=== PATIENT | male | born 1945 | race Caucasian/White ===

== ENCOUNTER 2016-07-24 16:55 | Observation (INO) | payer OTHER ==
[2016-07-24] MEDS ORDERED: NS 1,000 ML IV ONE (17:08)
--- NOTE | 2016-07-24 17:08 | UCPHY ---
H & P Patient Type: New HPI/ROS: HPI CHIEF COMPLAINT: Abdominal pain HISTORY OF PRESENT ILLNESS: this patient is 71-year-old male significant past medical history for hypertension, hyperlipidemia, diverticulitis with colon resection, presents to the urgent care with lower crampy abdominal pain x1 week. He has had intermittent nausea with it no chest pain no shortness of breath no fever. Denies diarrhea. Denies bloody stools. States that anything he feels constipated he has had ongoing lower abdominal pain that he describes as crampy and bloating in nature. This persisted for the week try to make appointment his doctor however could not get in so decided come to the urgent care. currently he tells me his pain is 3/10 lower abdominal cramping. Past Medical History: Hypertension, hyperlipidemia Past Surgical History: colon resection Social History: denies daily use of drugs alcohol tobacco products Family History: noncontributory ROS REVIEW OF SYSTEMS: A comprehensive 10 point review of systems is otherwise negative aside from elements mentioned in the history of present illness. Exam Constitutional appears well triage nursing summary reviewed, vital signs reviewed, awake/alert. Eyes normal conjunctivae and sclera, EOMI, PERRLA. HENT normal inspection, atraumatic, moist mucus membranes, no epistaxis, neck supple/ no meningismus, no raccoon eyes. Respiratory clear to auscultation bilaterally, normal breath sounds, no respiratory distress, no wheezing. Cardiovascular rate normal, regular rhythm, no murmur, no edema, distal pulses normal. Gastrointestinal soft, Very minimal tenderness in lower abdomen definitely no peritoneal signs, no rebound, no guarding, normal bowel sounds, no distension , no pulsatile mass. Genitourinary no CVA tenderness. Musculoskeletal no midline vertebral tenderness, full range of motion, no calf swelling, no tenderness of extremities, no meningismus, good pulses, neurovascularly intact. Skin pink, warm, & dry, no rash, skin atraumatic. Neurologic awake, alert and oriented x 3, AAOx3, moves all 4 extremities equally, motor intact, sensory intact, CN II-XII intact, normal cerebellar, normal vision, normal speech. Psychiatric normal mood/affect. Heme/Lymph/Immune no lymphadenopathy. Differential diagnosis includes but is not limited to and in no particular order : Bowel obstruction, appendicitis, gallbladder disease, diverticulitis, colitis , enteritis, perforated viscus, gastritis, GERD, esophagitis, urinary tract infection, pyelonephritis, kidney stones Medical Decision Making:This patient had an IV established obtain blood work, patient will need a CT scan abdomen pelvis with IV contrast to rule out acute diverticulitis, colitis, appendicitis check urinalysis Re-evaluation: CT scan of the Abdomen pelvis with IV contrast The results of the study are this shows acute diverticulitis of the colonic stump with significant stranding and area of air pocket most likely either micro perforation or diverticular air no evidence of free air or significant free fluid. The study was read by Dr. Becker. I viewed the images myself on the PACS system. 1856: This patient is comfortable being transported over to [facility] inpatient for acute diverticulitis with perforation. I spoke with the hospitalist service Dr. Arredondo who agrees to admit this patient. Source: Patient - Family History Significant Family History: No pertinent family hx Constitutional: Initial Vital Signs Temperature (C) 36.9 C 07/24/16 17:22 Heart Rate 82 07/24/16 17:22 Respiratory Rate 16 07/24/16 17:22 Blood Pressure 155/92 H 07/24/16 17:22 O2 Sat (%) 96 07/24/16 17:22 O2 Delivery Mode Room Air Allergies/Adverse Reactions: Penicillins Allergy (Intermediate, Verified 07/24/16 17:20) Home Medications: Medication Instructions Recorded ALLOPURINOL 08/27/09 Atorvastatin Calcium 07/24/16 Cq10 07/24/16 Flax Seed Oil 1,300 mg Softgel 07/24/16 Multi-Day Vitamins 07/24/16 Valsartan 07/24/16 Medical Decision Making - Data Points Laboratory Results: Laboratory Results 07/24/16 17:45 07/24/16 17:45 07/24/16 07/24/16 07/24/16 18:44 17:45 17:45 WBC RBC Hgb Hct MCV MCH MCHC RDW Plt Count MPV Neut % (Auto) Lymph % (Auto) Leake % (Auto) Eos % (Auto) Baso % (Auto) Nucleat RBC Rel Count Absolute Neuts (auto) Absolute Lymphs (auto) Absolute Monos (auto) Absolute Eos (auto) Absolute Basos (auto) Absolute Nucleated RBC Immature Gran % Immature Gran # PT 14.2 SEC SEC (12.0-15.0) INR 1.13 (0.83-1.16) APTT 30.9 SEC SEC (23.0-38.0) VBG Lactic Acid Sodium 139 mEq/L mEq/L (134-144) Potassium 3.8 mEq/L mEq/L (3.5-5.2) Chloride 103 mEq/L mEq/L (97-110) Carbon Dioxide 21 mEq/l L mEq/l (22-31) Anion Gap 15 mEq/L mEq/L (8-16) BUN 26 mg/dL H mg/dL (7-23) Creatinine 1.2 mg/dL mg/dL (0.7-1.3) Estimated GFR > 60 Glucose 94 mg/dL mg/dL (70-100) Calcium 8.8 mg/dL mg/dL (8.5-10.4) Total Bilirubin 0.2 mg/dL mg/dL (0.1-1.4) Conjugated Bilirubin 0.2 mg/dL mg/dL (0.0-0.5) Unconjugated Bilirubin 0.0 mg/dL mg/dL (0.0-1.1) AST 29 IU/L IU/L (17-59) ALT 40 IU/L IU/L (21-72) Alkaline Phosphatase 76 IU/L IU/L (38-126) Total Protein 6.6 g/dL g/dL (6.3-8.2) Albumin 3.7 g/dL g/dL (3.5-5.0) Lipase 80.0 IU/L IU/L (23-300) Urine Color Pending Urine Appearance Pending Urine pH Pending Ur Specific [place] Pending Urine Protein Pending Urine Ketones Pending Urine Blood Pending Urine Nitrate Pending Urine Bilirubin Pending Urine Urobilinogen Pending Ur Leukocyte Esterase Pending Ur Culture Indicated? Pending Urine Glucose Pending 07/24/16 07/24/16 17:45 17:45 WBC 7.05 10^3/uL 10^3/uL (3.80-9.50) RBC 4.36 10^6/uL L 10^6/uL (4.40-6.38) Hgb 12.8 g/dL L g/dL (13.7-17.5) Hct 37.0 % L % (40.0-51.0) MCV 84.9 fL fL (81.5-99.8) MCH 29.4 pg pg (27.9-34.1) MCHC 34.6 g/dL g/dL (32.4-36.7) RDW 13.1 % % (11.5-15.2) Plt Count 249 10^3/uL 10^3/uL (150-400) MPV 8.5 fL L fL (8.7-11.7) Neut % (Auto) Not Reported Lymph % (Auto) Not Reported Leake % (Auto) Not Reported Eos % (Auto) Not Reported Baso % (Auto) Not Reported Nucleat RBC Rel Count 0.0 % % (0.0-0.2) Absolute Neuts (auto) Not Reported Absolute Lymphs (auto) Not Reported Absolute Monos (auto) Not Reported Absolute Eos (auto) Not Reported Absolute Basos (auto) Not Reported Absolute Nucleated RBC 0.00 10^3/uL 10^3/uL (0-0.01) Immature Gran % Not Reported Immature Gran # Not Reported PT INR APTT VBG Lactic Acid 0.6 mmol/L L mmol/L (0.7-2.1) Sodium Potassium Chloride Carbon Dioxide Anion Gap BUN Creatinine Estimated GFR Glucose Calcium Total Bilirubin Conjugated Bilirubin Unconjugated Bilirubin AST ALT Alkaline Phosphatase Total Protein Albumin Lipase Urine Color Urine Appearance Urine pH Ur Specific [place] Urine Protein Urine Ketones Urine Blood Urine Nitrate Urine Bilirubin Urine Urobilinogen Ur Leukocyte Esterase Ur Culture Indicated? Urine Glucose Medications Given: Discontinued Medications Sodium Chloride (Ns) 1,000 mls @ 0 mls/hr IV ONCE ONE PRN Reason: Wide Open Stop: 07/24/16 17:09 Last Admin: 07/24/16 18:00 Dose: 1,000 mls Departure - Departure Disposition: [facility] Inpatient Acute Clinical Impression: Abdominal pain Qualifiers: Abdominal location: unspecified location Qualified Code(s): R10.9 - Unspecified abdominal pain Diverticulitis Qualifiers: Diverticulitis site: large intestine Diverticulitis bleeding: without bleeding Diverticulitis complication: with perforation Qualified Code(s): K57.20 - Diverticulitis of large intestine with perforation and abscess without bleeding Condition: Good Instructions: Acute Abdominal Pain (ED) Additional Instructions: 1.Please follow up with your doctor. 2. return to the emergency room urgent care if you have any worsening symptoms questions or concerns. Referrals: Domingo Parry MD [Primary Care Provider] - As per Instructions - PQRS PQRS Measurement: n/a
[2016-07-24 17:53] LABS: ADD MORPH? NO; ADD SCAN? YES; FRAGMENT RBC FLAG 0 (0-99); HEMOGLOBIN 12.8 g/dL (13.7-17.5); LEFT SHIFT FLG 0 (0-99); LIPEMIA HEMOLYSIS FLAG 90 (0-99); PLATELET CLUMPS FLAG 0 (0-99); RED CELL DISTRIBUTION WIDTH 13.1 % (11.5-15.2)
[2016-07-24 17:56] LABS: MEAN CELL HEMOGLOBIN 29.4 pg (27.9-34.1); MEAN CELL HEMOGLOBIN CONCENTR. 34.6 g/dL (32.4-36.7); MEAN CELL VOLUME 84.9 fL (81.5-99.8); MEAN PLATELET VOLUME 8.5 fL (8.7-11.7); PLATELET COUNT 249 10^3/uL (150-400); RED BLOOD CELL COUNT 4.36 10^6/uL (4.40-6.38)
[2016-07-24 18:03] LABS: ATYPICAL LYMPHOCYTE FLAG 160 (0-99)
[2016-07-24 18:05] LABS: ADD DIFF? NO
[2016-07-24 18:08] LABS: APTT 30.9 SEC (23.0-38.0)
[2016-07-24 18:10] LABS: ALANINE AMINOTRANSFERASE 40 IU/L (21-72); ALBUMIN 3.7 g/dL (3.5-5.0); ALKALINE PHOSPHATASE 76 IU/L (38-126); ANION GAP 15 mEq/L (8-16); ASPARTATE AMINOTRANSFERASE 29 IU/L (17-59); BILIRUBIN,TOTAL 0.2 mg/dL (0.1-1.4); BILIRUBIN-CONJUGATED 0.2 mg/dL (0.0-0.5); CALCIUM 8.8 mg/dL (8.5-10.4); CARBON DIOXIDE 21 mEq/l (22-31); CHLORIDE 103 mEq/L (97-110); CREATININE 1.2 mg/dL (0.7-1.3); GLOMERULAR FILTRATION RATE > 60; GLUCOSE 94 mg/dL (70-100); POTASSIUM 3.8 mEq/L (3.5-5.2); SODIUM 139 mEq/L (134-144); TOTAL PROTEIN 6.6 g/dL (6.3-8.2)
[2016-07-24 18:12] LABS: INR 1.13 (0.83-1.16); PROTIME(PATIENT) 14.2 SEC (12.0-15.0)
[2016-07-24] MEDS ORDERED: IOPAMIDOL (ISOVUE-300) 100 ML BTL IV ONE (18:21)
[2016-07-24] MEDS ORDERED: CIPROFLOXACIN 400 MG/DEXTROSE 200 ML IV ONE (18:51)
[2016-07-24 18:58] LABS: COLOR YELLOW; LEUKOCYTE ESTERASE,URINE NEGATIVE (NEGATIVE); NITRITE,URINE NEGATIVE (NEGATIVE)
[2016-07-24 18:59] LABS: ABSOLUTE IMMATURE GRANULOCYTES 0.07 10^3/uL (0.00-0.10)
[2016-07-24 19:01] LABS: SCAN NEGATIVE
[2016-07-24 19:16] LABS: BACTERIA 2+ /hpf (NONE SEEN); RBC,URINE 0-1 /hpf (0-3); WBC,URINE NONE SEEN /hpf (0-3)
[2016-07-24] MEDS ORDERED: oxyCODONE IR 5 MG TAB PO PRN (22:51)
[2016-07-24] MEDS ORDERED: ACETAMINOPHEN 325 MG TAB PO PRN (22:51)
[2016-07-24] MEDS ORDERED: ONDANSETRON 4 MG/2 ML VIAL IVP PRN (22:51)
[2016-07-24] MEDS ORDERED: HYDROmorphONE/DILAUDID 1 MG/ML SYR IVP PRN (22:51)
[2016-07-24] MEDS ORDERED: NS 1,000 ML IV SCH (23:00)
--- NOTE | 2016-07-24 23:21 | GHP ---
[f rep st] HISTORY AND PHYSICAL DATE OF ADMISSION: 07/24/2016 HISTORY: The patient is a 71-year-old male who has a history of severe diverticulitis in 2001 requi ring surgical resection by Dr. Hsu. He removed 10 cm of colon. He has not had any recurrent epis odes since that time. He now re-presents to the hospital with lower abdominal pain for the last wee k. Initially thought he might have the stomach flu. Then he thought he might be constipated and he felt bloated. Initially the pain was diffuse but it eventually has localized to a spot midline rig ht above his pelvic bone. He has had normal stool throughout this. There has never been any blood in his stool. His has noticed him to have daily low-grade fevers. At its worst, the pain is 8 /10. He is currently doing much better. He has had decreased p.o. intake and complete loss of appe tite and he has lost 5 pounds. He is up to date on colonoscopy with his last 1 being 1 year ago. PAST MEDICAL HISTORY: 1. Hypertension. 2. Hyperlipidemia. 3. Diverticulitis with colon resection by Dr. Hsu in 2001. 4. Obstructive sleep apnea, on CPAP. 5. Actinic keratosis. 6. Spinal stenosis. MEDICATIONS: Please see computer record for full detailed list. ALLERGIES: To penicillin. SOCIAL HISTORY: Distant smoker. He drinks alcohol a few times a week. He lives with his . 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 REVIEW OF SYSTEMS: Complete review of systems obtained. Review of systems is negative regarding co nstitutional, HEENT, GI, pulmonary, cardiovascular, , hematology, skin, musculoskeletal, endocrine and psychiatric, except for positives as noted in HPI. FAMILY HISTORY: Mother of a stroke and AL. Father of colon cancer and dementia. PHYSICAL EXAMINATION: GENERAL: Well-developed, well-nourished male, in no acute distress. VITAL S IGNS: Temperature is 36.9, pulse 82, blood pressure 155/92, saturating 96% on room air. EYES: Nor mal conjunctivae. Pupils react to light. ENT: Normal ears, nose. Hearing intact. Normal teeth. Oropharynx moist. NECK: Trachea midline. No thyromegaly. CHEST: Normal respiratory effort. Leonela ngs are clear to auscultation bilaterally. CARDIOVASCULAR: Regular rate and rhythm. No murmur. N o lower extremity edema. ABDOMEN: Soft, nontender. No hepatosplenomegaly. SKIN: Warm, dry, inta ct. No rash. MUSCULOSKELETAL: No cyanosis or clubbing. Strength 5/5 upper and lower extremities. NEUROLOGIC: Cranial nerves intact. Normal sensation to light touch. PSYCH: Alert and oriented x3. Normal mood and affect. Normal insight and judgment. Normal memory. LABS: White count 7.05, hematocrit 37.0, platelets 249. Sodium 139, potassium 3.8, chloride 103, b icarb 21, BUN 26, creatinine 1.2, glucose 94. LFTs are negative. INR is 1.13. Lactate 0.6. CT sc an of the abdomen and pelvis shows diverticulitis of the stump of his previous sigmoid anastomosis w ith a contained microperforation. ASSESSMENT/PLAN: 1. Acute diverticulitis with a contained microperforation. He was started on IV antibiotics includ ing IV ciprofloxacin, IV Flagyl, which I will continue. We will start him on clear liquids. We can advance his diet and change him to oral antibiotics as his condition improves. I think he will do well with medical therapy and I doubt he will need surgery. 2. Obstructive sleep apnea. Continue CPAP at night. 3. Hypertension. Home medications still need reconciliation and blood pressure medications can be continued. CODE STATUS: Full. ADMISSION STATUS: We will admit to observation. Depending on his clinical course, he may develop r apid improvement. DEEP VENOUS THROMBOSIS PROPHYLAXIS: He is moderate risk. I will prescribe subcutaneous Lovenox. /[id number]/MODL
[2016-07-25 05:55] LABS: % IMMATURE GRANULYOCYTES 1.4 % (0.0-1.1); ABSOLUTE IMMATURE GRANULOCYTES 0.07 10^3/uL (0.00-0.10); ADD DIFF? NO; ADD MORPH? NO; ADD SCAN? YES; ATYPICAL LYMPHOCYTE FLAG 160 (0-99); FRAGMENT RBC FLAG 0 (0-99); HEMATOCRIT 36.8 % (40.0-51.0); HEMOGLOBIN 12.7 g/dL (13.7-17.5); LEFT SHIFT FLG 10 (0-99); LIPEMIA HEMOLYSIS FLAG 90 (0-99); MEAN CELL HEMOGLOBIN 29.1 pg (27.9-34.1); MEAN CELL HEMOGLOBIN CONCENTR. 34.5 g/dL (32.4-36.7); MEAN CELL VOLUME 84.4 fL (81.5-99.8); MEAN PLATELET VOLUME 8.9 fL (8.7-11.7); PLATELET CLUMPS FLAG 0 (0-99); PLATELET COUNT 246 10^3/uL (150-400); RED BLOOD CELL COUNT 4.36 10^6/uL (4.40-6.38)
[2016-07-25 06:43] LABS: ANION GAP 11 mEq/L (8-16); CALCIUM 8.9 mg/dL (8.5-10.4); CARBON DIOXIDE 20 mEq/l (22-31); CHLORIDE 109 mEq/L (97-110); GLOMERULAR FILTRATION RATE > 60; GLUCOSE 97 mg/dL (70-100); POTASSIUM 4.2 mEq/L (3.5-5.2); SODIUM 140 mEq/L (134-144)
[2016-07-25 06:45] LABS: SCAN POSITIVE
[2016-07-25 06:49] LABS: PLATELET ESTIMATE ADEQUATE (ADEQ)
[2016-07-25 08:09] VITALS: PULSE 55; RESP 16
[2016-07-25] MEDS ORDERED: ENOXAPARIN 40 MG/0.4 ML SYR SC SCH (09:00)
[2016-07-25] MEDS ORDERED: CIPROFLOXACIN 400 MG/DEXTROSE 200 ML IV SCH (09:00)
--- NOTE | 2016-07-25 09:10 | HOSPPROG ---
Hospitalist Progress Note Assessment/Plan: patient is a 71-year-old male who presented to the emergency room with lower abdominal pain that he had last week. Initially he thought he had the stomach flu. The pain was diffuse. He has a history of severe diverticulitis in 2001 requiring surgical resection by Dr. Hsu. Today is my 1st encounter with the patient. Chart reviewed. * Acute diverticulitis with a contained micro perforation - ciprofloxacin and IV Flagyl. - On clear liquids -abdominal exam is negative -wbc count stable * obstructive sleep apnea * hypertension -resumed home meds *headache -has hx of chronic headaches/takes Excedrin daily for this Plan: dc today/ reviewed in detail with the patient about when to return to the emergency room. If he has any fever, chills, or any abdominal pain to return immediately. Subjective: Maurice is complaining of a headache. Has no abdominal pain. Objective: Vital Signs Temp Pulse Resp BP Pulse Ox 36.8 C 55 L 16 151/85 H 95 07/25/16 08:00 07/25/16 08:00 07/25/16 08:00 07/25/16 08:00 07/25/16 08:00 Laboratory Results 07/25/16 05:25 07/25/16 05:25 07/24/16 07/25/16 07/26/16 05:59 05:59 05:59 Intake Total 720 Output Total 700 Balance 20 PT 14.2 SEC (12.0-15.0) 07/24/16 17:45 INR 1.13 (0.83-1.16) 07/24/16 17:45 - Physical Exam Constitutional: no apparent distress, appears nourished, No not in pain ( headache) Ears, Nose, Mouth, Throat: hearing normal Cardiovascular: regular rate and rhythym Respiratory: no respiratory distress Gastrointestinal: normoactive bowel sounds, soft, non-tender abdomen, No tenderness Skin: warm, normal color Musculoskeletal: full muscle strength Neurologic: AAOx3 Psychiatric: interacting appropriately, not anxious ICD10 Worksheet Patient Problems: Problems Problem Status Onset Abdominal pain Acute Diverticulitis Acute
[2016-07-25] MEDS ORDERED: ACETAMINOPHEN 500 MG TAB PO PRN (10:44)
[2016-07-25] MEDS ORDERED: ACETAMINOPHEN/ASA/CAFFEINE 1 EACH TAB PO PRN (11:36)
[2016-07-25 11:44] VITALS: BP 151/87; TEMP 97.7; O2SAT 98
[2016-07-25] MEDS ORDERED: HYDROCHLOROTHIAZIDE PO SCH (11:45)
[2016-07-25] MEDS ORDERED: [UNRECOGNIZED DRUG - OTHER] PO SCH (11:45)
[2016-07-25] MEDS ORDERED: VALSARTAN PO SCH (11:45)
--- NOTE | 2016-07-25 12:11 | GDS ---
[f rep st] DISCHARGE SUMMARY DISCHARGE DIAGNOSES: 1. Acute diverticulitis with a contained microperforation. 2. Obstructive sleep apnea. 3. Hypertension. 4. Headache. HISTORY OF PRESENT ILLNESS: The patient is a 71-year-old male who has a history of severe diverticulitis in 2001, requiring surgical resection by Dr. Hsu. At that time, he had 10 cm of his colon removed. He has had no recurrent episodes. He now presented to the emergency room for having a consistent left lower quadrant abdominal pain for the last week. He thought it was the stomach flu or constipation. His noted that he had low-grade fevers. On his admission, he said his pain was markedly improved. He had a CT scan performed on admission that showed diverticulitis of the stump at the side-to-end sigmoid anastomosis. He had regional inflammation in the central pelvis. He had a contained microperforation versus gas-filled diverticulum at the apex of the stump. He had no pneumoperitoneum, free fluid or abscess. He had normal appendix. His pain has completely resolved. He is feeling well today. He will be discharged home on Cipro and Flagyl, to give him complete coverage. I have also discussed in detail with him if he has any fever, chills, worsening abdominal pain, to return to the emergency room immediately. HOSPITAL COURSE PER PROBLEM: 1. Acute diverticulitis with microperforation. This is contained. He is tolerating clear liquids. Recommending he stay on clear liquids for next 24 hours. His abdominal exam is completely negative. His white blood cell count is stable. Will continue antibiotics. To follow up with Dr. Hsu. 2. Obstructive sleep apnea. To resume his CPAP at home. 3. Hypertension. Home medications will be resumed. 4. Headache. He has a history of chronic headaches and takes Excedrin daily. This will be resumed. PENDING LABS AND TESTS: None. CONDITION AT DISCHARGE: Stable. Blood pressure is 151/85, pulse is 55, temperature is 36.8 Celsius. O2 saturation in room air 95%. MEDICATIONS AT DISCHARGE: Please see the EMR. DISCHARGE INSTRUCTIONS: 1. To return to the ER if he develops any fever, abdominal pain, chills. 2. To follow up with his primary care provider. 3. If he develops any diarrhea to follow up with his doctor immediately. He does have a history of Clostridium difficile many years ago. 4. Take Flagyl and Cipro as prescribed. To avoid alcohol while on Flagyl. /[id number]/MODL MTDD
[2016-07-26] MEDS ORDERED: HYDROCHLOROTHIAZIDE 12.5 MG CAP PO SCH (09:00)
[2016-07-26] MEDS ORDERED: VALSARTAN 160 MG TAB PO SCH (09:00)
== END 2016-07-25 14:48 | disposition home or self-care (01) ==
LOC: CED 16:55 → CEDHOLD 18:54 → INTOOBSV 18:54 → F3E 21:35
PROVIDERS: ADMIT Internal Medicine; ATTEND Internal Medicine
DX: K57.20 Diverticulitis of large intestine with perforation and abscess without bleeding (principal); I10 Essential (primary) hypertension; E78.5 Hyperlipidemia, unspecified; G47.33 Obstructive sleep apnea (adult) (pediatric); R51 Headache
CPT/HCPCS: 74177; 96361; 96365; 96367; G0378; G0463; J0744; J1650; Q9967; 80048-PO; 80076-PO; 81003-PO; 81015-PO; 83605-PO; 83690-PO; 85025-PO; 85610-PO; 85730-PO

== ENCOUNTER 2016-08-21 07:45 | Inpatient (IN) | payer OTHER ==
[2016-08-21] MEDS ORDERED: LR 1,000 ML IV ONE (08:28)
[2016-08-21] MEDS ORDERED: LIDOCAINE 1% 5 ML SDV ID PRN (08:28)
[2016-08-21] MEDS ORDERED: HEPARIN 1000 UNIT/1 ML MDV ONE ×2 (08:34→08:36)
[2016-08-21] MEDS ORDERED: BUPIVACAINE 0.5% 30 ML SDV ONE (08:34)
[2016-08-21] MEDS ORDERED: ceFAZolin 1 GM/5 ML SYR ONE (08:35)
[2016-08-21] MEDS ORDERED: PROPOFOL 200 MG/20 ML VIAL ONE (10:02)
[2016-08-21] MEDS ORDERED: fentaNYL 250 MCG/5 ML INJ ONE (10:03)
[2016-08-21] MEDS ORDERED: MIDAZOLAM 2 MG/2 ML VIAL ONE (10:03)
[2016-08-21] MEDS ORDERED: POLYETHYLENE GLYCOL 3350 17 GM PKT PO PRN (13:19)
[2016-08-21] MEDS ORDERED: NALOXONE HCL 0.4 MG/ML INJ IVP PRN (13:19)
[2016-08-21] MEDS ORDERED: MAGNESIUM HYDROXIDE 30 ML UDCUP PO PRN (13:19)
[2016-08-21] MEDS ORDERED: HYDROmorphONE/DILAUDID 6 MG/30 ML PCA IV PRN (13:19)
--- NOTE | 2016-08-21 13:28 | POSTOPPROG ---
Post Op Note Date of Operation: 08/21/16 Surgeon: Antwan Hsu Computer Instructor: Gaby Loving PAC, Lin Martinez MS, GADIEL Zacarias MS Anesthesiologist: Kandis Mares Anesthesia: GET(General Endotracheal) Pre-op Diagnosis: recurrent diverticulitis Post-op Diagnosis: same Procedure: lap sigmoid diverticulum resection, adhesiolysis, intraop colonoscopy Findings: large diverticulum, patent colon proven by colonoscopy during resection Inf/Abcess present in the surg proc area at time of surgery?: No EBL: Minimal Complications: none Specimen(s): sigmoid diverticulum to pathology
[2016-08-21] MEDS: HYDROCODONE/APAP 5/325 TAB PO PRN (16:52)
[2016-08-21] MEDS: KETOROLAC 15 MG/1 ML SDV IVP SCH (17:00)
[2016-08-21] MEDS: ATORVASTATIN CALCIUM 20 MG TAB PO SCH (20:31)
[2016-08-21] MEDS: ALLOPURINOL 100 MG TAB PO SCH (20:31)
[2016-08-21] MEDS: SENNOSIDES/DOCUSATE SODIUM TAB PO SCH (20:31)
[2016-08-22] MEDS: KETOROLAC 15 MG/1 ML SDV IVP SCH ×5 (00:31→23:18)
[2016-08-22] MEDS: NS W/ 20 KCl/L 1,000 ML IV SCH ×2 (00:31→06:14)
[2016-08-22 04:56] LABS: HEMATOCRIT 37.7 % (40.0-51.0); HEMOGLOBIN 12.5 g/dL (13.7-17.5)
[2016-08-22 05:23] LABS: ANION GAP 11 mEq/L (8-16); CALCIUM 8.3 mg/dL (8.5-10.4); CARBON DIOXIDE 20 mEq/l (22-31); CHLORIDE 107 mEq/L (97-110); CREATININE 1.1 mg/dL (0.7-1.3); GLOMERULAR FILTRATION RATE > 60; GLUCOSE 91 mg/dL (70-100); POTASSIUM 4.4 mEq/L (3.5-5.2); SODIUM 138 mEq/L (134-144)
[2016-08-22] MEDS: VALSARTAN 160 MG TAB PO SCH (08:26)
[2016-08-22] MEDS: HYDROCHLOROTHIAZIDE 12.5 MG CAP PO SCH (08:26)
[2016-08-22] MEDS: SENNOSIDES/DOCUSATE SODIUM TAB PO SCH ×2 (08:26→22:19)
[2016-08-22] MEDS: PANTOPRAZOLE SODIUM 40 MG TAB PO SCH (08:27)
[2016-08-22] MEDS ORDERED: [UNRECOGNIZED DRUG - OTHER] PO SCH (09:00)
[2016-08-22] MEDS ORDERED: VALSARTAN PO SCH (09:00)
[2016-08-22] MEDS ORDERED: HYDROCHLOROTHIAZIDE PO SCH (09:00)
--- NOTE | 2016-08-22 10:41 | SOAPPROG ---
SOAP Progress Note Assessment/Plan: Assessment/Plan: 71 Y M s/p resection of large sigmoid diverticulum. POD#1. Advance diet. Buff cap IVF. Ok to take SCDs off if walking. Dispo: likely in am. S: passing gas. no n/v. pain minimal--just using toradol. O: alert, nad ctab anteriorly rrr abd soft, inc cdi, +BS, appropriately ttp 08/22/16 10:38 Objective: Vital Signs Temp Pulse Resp BP Pulse Ox 36.9 C 66 16 137/81 H 96 08/22/16 07:26 08/22/16 07:26 08/22/16 07:26 08/22/16 07:26 08/22/16 07:26 Laboratory Results 08/22/16 04:19 08/22/16 04:19 08/21/16 08/22/16 08/23/16 05:59 05:59 05:59 Intake Total 3590 Output Total 575 200 Balance 3015 -200 ICD10 Worksheet Patient Problems: Problems Problem Status Onset Abdominal pain Acute Diverticulitis Acute
--- NOTE | 2016-08-22 18:57 | SOAPPROG ---
SOAP Progress Note Assessment/Plan: Assessment: DOING GREAT POSTOP. WOUNDS ARE CLEAN AND DRY. TOLERATING P.O.. POSITIVE FLATUS Plan: HOME IN THE A.M. 08/22/16 18:56 Objective: Vital Signs Temp Pulse Resp BP Pulse Ox 37.0 C 65 16 141/86 H 95 08/22/16 15:01 08/22/16 15:01 08/22/16 15:01 08/22/16 15:01 08/22/16 15:01 Laboratory Results 08/22/16 04:19 08/22/16 04:19 08/21/16 08/22/16 08/23/16 05:59 05:59 05:59 Intake Total 3590 500 Output Total 575 750 Balance 3015 -250 ICD10 Worksheet Patient Problems: Problems Problem Status Onset Abdominal pain Acute Diverticulitis Acute
[2016-08-22] MEDS: HYDROCODONE/APAP 5/325 TAB PO PRN (22:21)
[2016-08-22] MEDS: ALLOPURINOL 100 MG TAB PO SCH (23:23)
[2016-08-22] MEDS: ATORVASTATIN CALCIUM 20 MG TAB PO SCH (23:23)
[2016-08-23] MEDS: HYDROmorphONE/DILAUDID 1 MG/ML SYR IVP PRN ×2 (00:18→21:24)
[2016-08-23] MEDS: ONDANSETRON 4 MG/2 ML VIAL IVP PRN ×3 (03:57→21:31)
[2016-08-23] MEDS: KETOROLAC 15 MG/1 ML SDV IVP SCH ×3 (05:35→17:50)
[2016-08-23] MEDS: VALSARTAN 160 MG TAB PO SCH (07:43)
[2016-08-23] MEDS: PANTOPRAZOLE SODIUM 40 MG TAB PO SCH (07:43)
[2016-08-23] MEDS: HYDROCHLOROTHIAZIDE 12.5 MG CAP PO SCH (07:44)
[2016-08-23] MEDS: SENNOSIDES/DOCUSATE SODIUM TAB PO SCH ×2 (07:44→20:24)
[2016-08-23] MEDS: ENOXAPARIN 40 MG/0.4 ML SYR SC SCH (07:45)
--- NOTE | 2016-08-23 08:05 | SOAPPROG ---
SOTHONY Progress Note Assessment/Plan: Assessment/Plan: 71 Y M s/p resection of large sigmoid diverticulum. POD#2. Probable ileus now. Back to clear liquid diet. AXR today. Pain. Associated with ileus. On PC TECH now in addition to toradol. Dispo: now pending. S: Was passing gas yesterday but now that has stopped. Increased abdominal pain overnight. O: alert, nad ctab anteriorly rrr abd distended. no BS. inc cdi 08/23/16 08:03 Objective: Vital Signs Temp Pulse Resp BP Pulse Ox 37.2 C 85 18 154/92 H 94 08/23/16 07:34 08/23/16 07:34 08/23/16 07:34 08/23/16 07:43 08/23/16 07:34 Laboratory Results 08/22/16 04:19 08/22/16 04:19 08/22/16 08/23/16 08/24/16 05:59 05:59 05:59 Intake Total 1403 2737 Output Total 308 1768 Balance 3015 -611 ICD10 Worksheet Patient Problems: Problems Problem Status Onset Abdominal pain Acute Diverticulitis Acute
--- NOTE | 2016-08-23 10:16 | GOP ---
[f rep st] OPERATIVE REPORT DATE OF OPERATION: 08/21/2016 SURGEON: Antwan Hsu MD FLUOROSCOPE OPERATOR: KATHARINE Mcdonald ANESTHESIOLOGIST: . PREOPERATIVE DIAGNOSIS: Diverticulitis. POSTOPERATIVE DIAGNOSIS: Diverticulitis. PROCEDURE PERFORMED: Laparoscopic partial sigmoid colectomy, as well as adhesiolysis for an interna l hernia with small bowel, enterorrhaphy, colonoscopy. FINDINGS: Patient was found to have marked adhesions in the abdomen and an area of internal hernia of the small bowel in the right lower quadrant which had to be freed up and required a single stitch in the serosa of the small bowel. Also had an outpouching of his previous sigmoid anastomosis whic h was involved with diverticulitis. Intraoperative colonoscopy showed no other diverticula and a pa tent open channel after his resection. DESCRIPTION OF PROCEDURE: Patient was taken to the operating room, where he received satisfactory g eneral endotracheal anesthesia. He was placed in the supine position in low stirrups, prepped and d raped in the usual sterile fashion. A short incision was made in the right upper quadrant. A Veres s needle was inserted. Pneumoperitoneum was established. Trocar was introduced. Laparoscope intro duced. Good visualization was obtained. Multiple adhesions were encountered. Two other trocar sit es were placed in the left lower quadrant which allowed the better dissection of the adhesions and f reeing up the small bowel. An internal hernia defect was reduced. The bowel was dissected off the abdominal wall. A single stitch was made in the serosa of the small bowel that was attached to the abdominal wall. The small bowel was reduced. The sigmoid colon was dissected free, again using the Harmonic Scalpel. This outpouching of the previous end-to-side anastomosis was freed up, and it todd d isolated. Once this outpouching was fully isolated it was cross clamped with the Endo-WILTON stapler . At that point, a colonoscope was introduced transanally and passed up to the splenic flexure. Th ere was no evidence of other diverticula and no evidence of compromise of the main lumen. The scope was withdrawn. The stapler was then fired; this required 2 firings of the stapler. The specimen w as placed in a specimen bag and extracted through the larger trocar site. Hemostasis was assured. The wound was irrigated. No particular difficulties were encountered. The trocars were removed und er direct vision. Trocar sites were closed with 0 Vicryl for the fascia, 4-0 Monocryl subcuticular stitch for the skin. All layers were infiltrated with 0.5% Marcaine. He was taken to the recovery room in good condition. There were no complications. /[id number]/MODL
[2016-08-23] MEDS: ERTAPENEM 1 GM in NS 100 ML IV SCH (18:27)
[2016-08-23 19:01] LABS: % IMMATURE GRANULYOCYTES 0.6 % (0.0-1.1); ABSOLUTE IMMATURE GRANULOCYTES 0.07 10^3/uL (0.00-0.10); ADD DIFF? NO; ADD MORPH? NO; ADD SCAN? YES; ATYPICAL LYMPHOCYTE FLAG 0 (0-99); FRAGMENT RBC FLAG 0 (0-99); HEMOGLOBIN 13.6 g/dL (13.7-17.5); LIPEMIA HEMOLYSIS FLAG 90 (0-99); MEAN CELL HEMOGLOBIN 29.8 pg (27.9-34.1); MEAN CELL HEMOGLOBIN CONCENTR. 34.9 g/dL (32.4-36.7); MEAN CELL VOLUME 85.3 fL (81.5-99.8); MEAN PLATELET VOLUME 8.7 fL (8.7-11.7); PLATELET CLUMPS FLAG 0 (0-99); PLATELET COUNT 144 10^3/uL (150-400); RED BLOOD CELL COUNT 4.57 10^6/uL (4.40-6.38); RED CELL DISTRIBUTION WIDTH 13.8 % (11.5-15.2)
[2016-08-23 19:08] LABS: LEFT SHIFT FLG 130 (0-99)
[2016-08-23 19:58] LABS: SCAN POSITIVE
[2016-08-23 20:01] LABS: PLATELET ESTIMATE ADEQUATE (ADEQ)
[2016-08-23] MEDS: ATORVASTATIN CALCIUM 20 MG TAB PO SCH (20:24)
[2016-08-23] MEDS: ALLOPURINOL 100 MG TAB PO SCH (20:24)
[2016-08-23] MEDS ORDERED: LABETALOL HCL 50 MG/10 ML SYR ONE (23:00)
[2016-08-23] MEDS ORDERED: PHENYLEPHRINE HCL 100 MCG/ML SYR ONE (23:00)
[2016-08-23] MEDS ORDERED: LIDOCAINE 2% 5 ML SDV ONE (23:01)
[2016-08-23] MEDS ORDERED: ROCURONIUM 50 MG/5 ML VIAL ONE (23:01)
[2016-08-23] MEDS ORDERED: PROPOFOL 200 MG/20 ML VIAL ONE (23:03)
[2016-08-23] MEDS ORDERED: fentaNYL 250 MCG/5 ML INJ ONE (23:03)
[2016-08-23] MEDS ORDERED: ONDANSETRON 4 MG/2 ML VIAL ONE (23:26)
[2016-08-23] MEDS ORDERED: DEXAMETHASONE 4 MG/ML VIAL ONE (23:26)
[2016-08-23] MEDS ORDERED: BUPIVACAINE 0.5% 30 ML SDV ONE (23:47)
[2016-08-24] MEDS: KETOROLAC 15 MG/1 ML SDV IVP SCH ×4 (00:13→17:07)
[2016-08-24] MEDS ORDERED: SUGAMMADEX SODIUM 200 MG/2 ML VIAL IVP ONE (00:38)
[2016-08-24] MEDS ORDERED: fentaNYL 100 MCG/2 ML INJ ONE ×2 (00:45→01:22)
--- NOTE | 2016-08-24 01:13 | SOAPPROG ---
SOAP Progress Note Assessment/Plan: Assessment: DOING GREAT POSTOP. WOUNDS ARE CLEAN AND DRY. TOLERATING P.O.. POSITIVE FLATUS Plan: HOME IN THE A.M. 08/22/16 18:56 08/24/16 01:11 PT SUDDENLY TENDER LAST PM/ LOW GRADE TEMP/ MUCH PAIN WITH MOVEMENT/ WBC 10 K/ 2 -WAY NONDIAGNOSTIC SUSPICIOUS FOR PERITONITIS/ RISKS AND OPTIONS FULLY DISCUSSED/ PLAN LAPAROSCOPY Objective: Vital Signs Temp Pulse Resp BP Pulse Ox 36.7 C 83 18 146/90 H 95 08/23/16 19:27 08/23/16 19:27 08/23/16 19:27 08/23/16 19:27 08/23/16 19:27 Laboratory Results 08/23/16 18:40 08/22/16 04:19 08/22/16 08/23/16 08/24/16 05:59 05:59 05:59 Intake Total 3590 1789 500 Output Total 575 2400 350 Balance 3015 -611 150 ICD10 Worksheet Patient Problems: Problems Problem Status Onset Abdominal pain Acute Diverticulitis Acute
--- NOTE | 2016-08-24 01:16 | POSTOPPROG ---
Post Op Note Date of Operation: 08/24/16 Surgeon: Antwan Hsu Manager Alliance: VICENTE Anesthesiologist: TESS Anesthesia: GET(General Endotracheal) Pre-op Diagnosis: PERITONITIS Post-op Diagnosis: SAME Indication: PERSISTENT RLQ PAIN Procedure: LAPROSCOPY/ LAPAROTOMY WITH DRAINAGE OF PERITONEAL PELVIC FLUID Findings: PERITONITIS WITH CLOUDY FLUID BUT NO BOWELL INJURY OR LEAK Inf/Abcess present in the surg proc area at time of surgery?: Yes Depth: Organ Space EBL: Minimal Complications: 0 Drains: Farrukh Trevizo
[2016-08-24 04:58] LABS: % IMMATURE GRANULYOCYTES 0.5 % (0.0-1.1); ABSOLUTE IMMATURE GRANULOCYTES 0.05 10^3/uL (0.00-0.10); ADD DIFF? NO; ADD MORPH? NO; ADD SCAN? YES; ATYPICAL LYMPHOCYTE FLAG 0 (0-99); FRAGMENT RBC FLAG 0 (0-99); HEMATOCRIT 38.4 % (40.0-51.0); HEMOGLOBIN 13.4 g/dL (13.7-17.5); LIPEMIA HEMOLYSIS FLAG 90 (0-99); MEAN CELL HEMOGLOBIN 29.9 pg (27.9-34.1); MEAN CELL HEMOGLOBIN CONCENTR. 34.9 g/dL (32.4-36.7); MEAN CELL VOLUME 85.7 fL (81.5-99.8); MEAN PLATELET VOLUME 9.1 fL (8.7-11.7); PLATELET CLUMPS FLAG 0 (0-99); PLATELET COUNT 149 10^3/uL (150-400); RED BLOOD CELL COUNT 4.48 10^6/uL (4.40-6.38); RED CELL DISTRIBUTION WIDTH 13.9 % (11.5-15.2)
[2016-08-24 05:02] LABS: LEFT SHIFT FLG 180 (0-99)
[2016-08-24 05:11] LABS: AMYLASE 50 IU/L (30-110)
[2016-08-24 05:51] LABS: SCAN POSITIVE
[2016-08-24 05:56] LABS: LARGE PLATELETS PRESENT; PLATELET ESTIMATE ADEQUATE (ADEQ); TOXIC GRANULATION PRESENT; TOXIC VACUOLIZATION PRESENT
[2016-08-24] MEDS: D5W 1/2 NS W/ 20 KCl/L 1,000 ML IV SCH ×3 (07:05→20:52)
[2016-08-24] MEDS: ERTAPENEM 1 GM in NS 100 ML IV SCH (09:26)
[2016-08-24] MEDS: ENOXAPARIN 40 MG/0.4 ML SYR SC SCH (09:30)
[2016-08-24] MEDS: SENNOSIDES/DOCUSATE SODIUM TAB PO SCH ×2 (09:32→20:25)
[2016-08-24] MEDS: VALSARTAN 160 MG TAB PO SCH (09:33)
[2016-08-24] MEDS: HYDROCHLOROTHIAZIDE 12.5 MG CAP PO SCH (09:34)
[2016-08-24] MEDS: PANTOPRAZOLE SODIUM 40 MG TAB PO SCH (09:35)
--- NOTE | 2016-08-24 09:37 | SOAPPROG ---
SOAP Progress Note Assessment/Plan: Assessment: 71 yo male s/p lap with peritoneal pelvic fluid drainage for peritonitis POD#0 ; s/p resection of large sigmoid diverticulum POD#3 S: Pain well controlled 2/10. Currently NPO. No flatus. Gen: awake, alert, comfortable, afebrile HEENT: mmm, nonicteric sclera Chest: ctab anteriorly, no wob COR: rrr, no mumurs ABD: soft, slightly distended with no BS; tender RLQ upon palpation; incisions CDI; +2 JACK drains with serosanguineous output Plan: Continue NPO. Await peritoneal fluid GS/C results. 08/24/16 09:47 Objective: Vital Signs Temp Pulse Resp BP Pulse Ox 36.7 C 78 18 150/84 H 97 08/24/16 07:25 08/24/16 07:25 08/24/16 07:25 08/24/16 07:25 08/24/16 07:25 Microbiology 08/24/16 00:20 Gram Stain - Final Peritoneal Fluid - Eswab Laboratory Results 08/24/16 04:10 08/22/16 04:19 08/23/16 08/24/16 08/25/16 05:59 05:59 05:59 Intake Total 1789 1550 Output Total 2400 1140 Balance -611 410 ICD10 Worksheet Patient Problems: Problems Problem Status Onset Abdominal pain Acute Diverticulitis Acute
[2016-08-24] MEDS: HYDROmorphONE/DILAUDID 1 MG/ML SYR IVP PRN ×2 (10:59→16:34)
[2016-08-24] MEDS: ONDANSETRON 4 MG/2 ML VIAL IVP PRN (11:03)
[2016-08-24] MEDS: ALLOPURINOL 100 MG TAB PO SCH (20:24)
[2016-08-24] MEDS: ATORVASTATIN CALCIUM 20 MG TAB PO SCH (20:25)
[2016-08-25] MEDS: KETOROLAC 15 MG/1 ML SDV IVP SCH ×5 (00:20→23:21)
[2016-08-25] MEDS: D5W 1/2 NS W/ 20 KCl/L 1,000 ML IV SCH ×2 (03:29→09:59)
[2016-08-25] MEDS: ONDANSETRON 4 MG/2 ML VIAL IVP PRN ×3 (07:32→22:16)
[2016-08-25] MEDS: HYDROmorphONE/DILAUDID 1 MG/ML SYR IVP PRN ×2 (07:35→11:31)
[2016-08-25] MEDS: ERTAPENEM 1 GM in NS 100 ML IV SCH (08:58)
[2016-08-25] MEDS: ENOXAPARIN 40 MG/0.4 ML SYR SC SCH (09:03)
[2016-08-25] MEDS: VALSARTAN 160 MG TAB PO SCH (09:05)
[2016-08-25] MEDS: SENNOSIDES/DOCUSATE SODIUM TAB PO SCH ×2 (09:05→22:53)
[2016-08-25] MEDS: HYDROCHLOROTHIAZIDE 12.5 MG CAP PO SCH (09:05)
[2016-08-25] MEDS: PANTOPRAZOLE SODIUM 40 MG TAB PO SCH (09:06)
--- NOTE | 2016-08-25 10:01 | SOAPPROG ---
SOAP Progress Note Assessment/Plan: Assessment: 71 yo male s/p lap with peritoneal pelvic fluid drainage for peritonitis POD#1; s/p resection of large sigmoid diverticulum POD#4 Abd xray demonstrates possible small bowel obstruction vs ileus. May need NG tube placed. Pain well controlled. NPO Gen: comfortable, afebrile ABD: distended; incisions CDI; +2 JACK drains with serosanguineous output 08/25/16 20:19 Objective: Vital Signs Temp Pulse Resp BP Pulse Ox 36.9 C 64 18 139/86 H 95 08/25/16 07:57 08/25/16 07:57 08/25/16 07:57 08/25/16 09:05 08/25/16 07:57 Microbiology 08/24/16 00:20 Gram Stain - Final Peritoneal Fluid - Eswab Laboratory Results 08/24/16 04:10 08/22/16 04:19 08/24/16 08/25/16 08/26/16 05:59 05:59 05:59 Intake Total 1550 Output Total 1140 1925 Balance 410 -1925 ICD10 Worksheet Patient Problems: Problems Problem Status Onset Abdominal pain Acute Diverticulitis Acute
--- NOTE | 2016-08-25 11:37 | GOP ---
[f rep st] OPERATIVE REPORT DATE OF OPERATION: 08/24/2016 SURGEON: Antwan Hsu MD RN ORTHOPAEDIC: Davis Ware MD ANESTHESIOLOGIST: Ernst Bolton MD PREOPERATIVE DIAGNOSIS: Peritonitis. POSTOPERATIVE DIAGNOSIS: Peritonitis. PROCEDURE PERFORMED: Laparotomy with drainage of peritoneal fluid. FINDINGS: The patient was found to have peritonitis in the pelvis with some cloudy fluid, but no sm all bowel injury or leak, no compromised bowel, and no obvious inciting reason for the infection oth er than his previous diverticulitis. DESCRIPTION OF PROCEDURE: The patient was taken to the operating room where he received satisfactor y general endotracheal anesthesia by Dr. Bolton, placed in supine position, prepped and draped in the usual sterile fashion. A short incision made in the left upper quadrant. A Veress needle i nserted. Pneumoperitoneum was established. A trocar was introduced. Laparoscope introduced. Good visualization was obtained. There was no significant amount of free fluid. There was a fair amoun t of inflammatory changes in the right lower quadrant and pelvis, and eventually a second trocar was placed in the left lower quadrant. The bowel was manipulated. There was no evidence of bile leaka ge or succus. There was a fair amount of cloudy fluid in the pelvis. It was elected to proceed wit h an open exploration. A midline lower abdominal incision was made and carried through to the linea alba. The abdomen was entered. Some cloudy fluid in the pelvis was suctioned clear and sent for c ulture. The wound was somewhat enlarged. The remaining abdominal adhesions were taken down until t he entire small bowel could be followed. There was no evidence of trocar site injury or bowel injur y from a previous surgery, but there was a fair amount of fibrinous exudate and cloudy fluid in the pelvis. The small bowel was retracted away into the upper abdomen and the colon was examined, freed up. The suture line was quite intact with no evidence of leakage or any problems and the lumen was quite patent. No obvious source for any ongoing contamination could be identified. The wound was copiously irrigated. A 15 round silicone JACK drain was brought out through one of the trocar sites a nd placed in the pelvis and the abdomen was then closed in layers using a running #1 PDS suture for the linea alba. A 2nd subcu drain was placed through another trocar site using a 15 round silicone drain. The wound was then closed with skin olivier over the drain. Wounds were also infiltrated wi th 0.5% Marcaine. He tolerated the procedure quite well. Blood loss was negligible. There were no complications. /[id number]/MODL
[2016-08-25] MEDS: ATORVASTATIN CALCIUM 20 MG TAB PO SCH (22:51)
[2016-08-25] MEDS: ALLOPURINOL 100 MG TAB PO SCH (22:52)
[2016-08-25] MEDS: HYDROCODONE/APAP 5/325 TAB PO PRN (22:52)
[2016-08-26] MEDS: KETOROLAC 15 MG/1 ML SDV IVP SCH ×2 (05:32→11:56)
[2016-08-26 05:36] LABS: % IMMATURE GRANULYOCYTES 1.8 % (0.0-1.1); ABSOLUTE IMMATURE GRANULOCYTES 0.13 10^3/uL (0.00-0.10); ADD DIFF? NO; ADD MORPH? NO; ADD SCAN? NO; ATYPICAL LYMPHOCYTE FLAG 20 (0-99); FRAGMENT RBC FLAG 0 (0-99); HEMATOCRIT 32.9 % (40.0-51.0); HEMOGLOBIN 10.9 g/dL (13.7-17.5); LEFT SHIFT FLG 10 (0-99); LIPEMIA HEMOLYSIS FLAG 80 (0-99); MEAN CELL HEMOGLOBIN 28.7 pg (27.9-34.1); MEAN CELL HEMOGLOBIN CONCENTR. 33.1 g/dL (32.4-36.7); MEAN CELL VOLUME 86.6 fL (81.5-99.8); MEAN PLATELET VOLUME 9.2 fL (8.7-11.7); PLATELET CLUMPS FLAG 0 (0-99); PLATELET COUNT 193 10^3/uL (150-400); RED CELL DISTRIBUTION WIDTH 13.5 % (11.5-15.2)
[2016-08-26 05:58] LABS: ALANINE AMINOTRANSFERASE 33 IU/L (21-72); ALBUMIN 2.6 g/dL (3.5-5.0); ALKALINE PHOSPHATASE 57 IU/L (38-126); AMYLASE 41 IU/L (30-110); ANION GAP 7 mEq/L (8-16); ASPARTATE AMINOTRANSFERASE 16 IU/L (17-59); BILIRUBIN,TOTAL 0.7 mg/dL (0.1-1.4); BILIRUBIN-CONJUGATED 0.3 mg/dL (0.0-0.5); BILIRUBIN-UNCONJUGATED 0.4 mg/dL (0.0-1.1); CALCIUM 8.1 mg/dL (8.5-10.4); CARBON DIOXIDE 25 mEq/l (22-31); CHLORIDE 102 mEq/L (97-110); GLOMERULAR FILTRATION RATE > 60; GLUCOSE 116 mg/dL (70-100); POTASSIUM 4.1 mEq/L (3.5-5.2); SODIUM 134 mEq/L (134-144); TOTAL PROTEIN 5.2 g/dL (6.3-8.2)
[2016-08-26] MEDS: ENOXAPARIN 40 MG/0.4 ML SYR SC SCH (09:04)
[2016-08-26] MEDS: HYDROCHLOROTHIAZIDE 12.5 MG CAP PO SCH (09:05)
[2016-08-26] MEDS: VALSARTAN 160 MG TAB PO SCH (09:05)
[2016-08-26] MEDS: SENNOSIDES/DOCUSATE SODIUM TAB PO SCH ×2 (09:06→20:57)
[2016-08-26] MEDS: ERTAPENEM 1 GM in NS 100 ML IV SCH (09:06)
[2016-08-26] MEDS: PANTOPRAZOLE SODIUM 40 MG TAB PO SCH (09:06)
[2016-08-26] MEDS: ONDANSETRON 4 MG/2 ML VIAL IVP PRN ×2 (09:43→21:08)
[2016-08-26] MEDS: D5W 1/2 NS W/ 20 KCl/L 1,000 ML IV SCH (09:43)
--- NOTE | 2016-08-26 10:09 | SOAPPROG ---
SOAP Progress Note Assessment/Plan: Assessment: s/p lap sigmoid colectomy and laparotomy for peritonitis Ileus resolving dc schwab 8 oz clears every 8 hours S: Feeling better, nausea after po meds. Some flatus Plan: 08/26/16 10:07 Objective: Vital Signs Temp Pulse Resp BP Pulse Ox 36.5 C 60 18 143/77 H 94 08/26/16 08:00 08/26/16 08:00 08/26/16 08:00 08/26/16 08:00 08/26/16 08:00 Microbiology 08/24/16 00:20 Gram Stain - Final Peritoneal Fluid - Eswab Laboratory Results 08/26/16 04:23 08/26/16 04:23 08/25/16 08/26/16 08/27/16 05:59 05:59 05:59 Output Total 1924 2110 Balance -1925 -2110 Physical Exam - Physical Exam General Appearance: WD/WN, alert, mild distress EENT: normal ENT inspection Respiratory: chest non-tender, lungs clear, normal breath sounds Cardiac/Chest: regular rate, rhythm Abdomen: other (distended, bs present, minimally tender. JPs with scant fluid) ICD10 Worksheet Patient Problems: Problems Problem Status Onset Abdominal pain Acute Diverticulitis Acute
[2016-08-26] MEDS: HYDROCODONE/APAP 5/325 TAB PO PRN ×2 (11:51→21:08)
[2016-08-26] MEDS: ATORVASTATIN CALCIUM 20 MG TAB PO SCH (20:57)
[2016-08-26] MEDS: ALLOPURINOL 100 MG TAB PO SCH (20:57)
[2016-08-26] MEDS: HYDROmorphONE/DILAUDID 1 MG/ML SYR IVP PRN (21:24)
[2016-08-27] MEDS: ONDANSETRON 4 MG/2 ML VIAL IVP PRN ×4 (00:21→22:53)
[2016-08-27] MEDS: HYDROmorphONE/DILAUDID 1 MG/ML SYR IVP PRN ×4 (00:21→22:49)
[2016-08-27] MEDS: ERTAPENEM 1 GM in NS 100 ML IV SCH (08:00)
[2016-08-27] MEDS: PANTOPRAZOLE SODIUM 40 MG TAB PO SCH (08:01)
[2016-08-27] MEDS: VALSARTAN 160 MG TAB PO SCH (08:01)
[2016-08-27] MEDS: SENNOSIDES/DOCUSATE SODIUM TAB PO SCH ×3 (08:01→20:26)
[2016-08-27] MEDS: HYDROCHLOROTHIAZIDE 12.5 MG CAP PO SCH (08:01)
[2016-08-27] MEDS: ENOXAPARIN 40 MG/0.4 ML SYR SC SCH (08:01)
[2016-08-27 08:54] LABS: ADD DIFF? YES; ADD MORPH? NO; ADD SCAN? NO; ATYPICAL LYMPHOCYTE FLAG 40 (0-99); FRAGMENT RBC FLAG 0 (0-99); LEFT SHIFT FLG 20 (0-99); LIPEMIA HEMOLYSIS FLAG 90 (0-99); MEAN CELL HEMOGLOBIN 29.6 pg (27.9-34.1); MEAN CELL HEMOGLOBIN CONCENTR. 34.3 g/dL (32.4-36.7); MEAN CELL VOLUME 86.2 fL (81.5-99.8); MEAN PLATELET VOLUME 8.7 fL (8.7-11.7); PLATELET CLUMPS FLAG 0 (0-99); PLATELET COUNT 242 10^3/uL (150-400); RED BLOOD CELL COUNT 4.06 10^6/uL (4.40-6.38); RED CELL DISTRIBUTION WIDTH 13.7 % (11.5-15.2)
[2016-08-27 09:24] LABS: ANION GAP 11 mEq/L (8-16); CALCIUM 8.6 mg/dL (8.5-10.4); CARBON DIOXIDE 25 mEq/l (22-31); CHLORIDE 99 mEq/L (97-110); CREATININE 0.9 mg/dL (0.7-1.3); GLOMERULAR FILTRATION RATE > 60; GLUCOSE 105 mg/dL (70-100); POTASSIUM 4.1 mEq/L (3.5-5.2); SODIUM 135 mEq/L (134-144)
[2016-08-27 09:29] LABS: PLATELET ESTIMATE ADEQUATE (ADEQ)
--- NOTE | 2016-08-27 10:32 | SOAPPROG ---
SOAP Progress Note Assessment/Plan: Assessment: s/p lap sigmoid colectomy and laparotomy for peritonitis Bilious emesis last night, refused NG Continue NPO DC superior drain S: Flatus yesterday but none today Plan: 08/26/16 10:07 08/27/16 10:30 Objective: Vital Signs Temp Pulse Resp BP Pulse Ox 36.7 C 64 18 165/94 H 92 08/27/16 07:25 08/27/16 07:25 08/27/16 07:25 08/27/16 07:25 08/27/16 07:25 Microbiology 08/24/16 00:20 Gram Stain - Final Peritoneal Fluid - Eswab Laboratory Results 08/27/16 08:30 08/27/16 08:15 08/26/16 08/27/16 08/28/16 05:59 05:59 05:59 Intake Total 1200 Output Total 2110 2011 Balance -2111 -812 Physical Exam - Physical Exam General Appearance: WD/WN, alert, mild distress EENT: normal ENT inspection Respiratory: chest non-tender, lungs clear, normal breath sounds Cardiac/Chest: regular rate, rhythm (slight soft distension, bowel sounds present. Incisions cdi. JACK with serosang fluid) ICD10 Worksheet Patient Problems: Problems Problem Status Onset Abdominal pain Acute Diverticulitis Acute
[2016-08-27] MEDS ORDERED: ALTEPLASE 2 MG VIAL IVP PRN (13:57)
[2016-08-27] MEDS: D5W 1/2 NS W/ 20 KCl/L 1,000 ML IV SCH (14:30)
[2016-08-27] MEDS: ACETAMINOPHEN/ASA/CAFFEINE 1 EACH TAB PO PRN (16:21)
[2016-08-27] MEDS: ALLOPURINOL 100 MG TAB PO SCH (20:07)
[2016-08-27] MEDS: ATORVASTATIN CALCIUM 20 MG TAB PO SCH (20:07)
[2016-08-28] MEDS: ENOXAPARIN 40 MG/0.4 ML SYR SC SCH (08:14)
[2016-08-28] MEDS: ERTAPENEM 1 GM in NS 100 ML IV SCH (08:14)
[2016-08-28] MEDS: PANTOPRAZOLE SODIUM 40 MG TAB PO SCH (08:15)
[2016-08-28] MEDS: HYDROCHLOROTHIAZIDE 12.5 MG CAP PO SCH (08:15)
[2016-08-28] MEDS: VALSARTAN 160 MG TAB PO SCH (08:15)
[2016-08-28] MEDS: HYDROmorphONE/DILAUDID 1 MG/ML SYR IVP PRN (08:31)
[2016-08-28] MEDS: ONDANSETRON 4 MG/2 ML VIAL IVP PRN ×2 (08:48→20:22)
--- NOTE | 2016-08-28 12:23 | SOAPPROG ---
SOAP Progress Note Assessment/Plan: Assessment: 71yo male s/p sigmoid colectomy for history of diverticulitis, laparotomy for peritonitis Feel little better than yesterday, passing small amounts of gas, ambulating, feels like things are trending the right way. PE Laying in bad Abdomen mildly distended, incision clean and dry JACK with serosag drainage, bowel sounds present Plan: trial of small amount of clears later if still passing gas will check back this afternoon and consider clears. 08/28/16 12:20 Objective: Vital Signs Temp Pulse Resp BP Pulse Ox 36.6 C 61 18 151/86 H 98 08/28/16 11:49 08/28/16 11:49 08/28/16 11:49 08/28/16 11:49 08/28/16 11:49 Microbiology 08/24/16 00:20 Gram Stain - Final Peritoneal Fluid - Eswab Laboratory Results 08/27/16 08:30 08/27/16 08:15 08/27/16 08/28/16 08/29/16 05:59 05:59 05:59 Intake Total 1200 900 Output Total 2011 1230 Balance -812 -330 ICD10 Worksheet Patient Problems: Problems Problem Status Onset Abdominal pain Acute Diverticulitis Acute
[2016-08-28] MEDS: SENNOSIDES/DOCUSATE SODIUM TAB PO SCH ×2 (12:57→20:25)
[2016-08-28] MEDS: HYDROCODONE/APAP 5/325 TAB PO PRN ×2 (13:37→20:25)
[2016-08-28] MEDS: ACETAMINOPHEN/ASA/CAFFEINE 1 EACH TAB PO PRN (13:37)
[2016-08-28] MEDS: ATORVASTATIN CALCIUM 20 MG TAB PO SCH (20:22)
[2016-08-28] MEDS: ALLOPURINOL 100 MG TAB PO SCH (20:23)
[2016-08-29] MEDS: ONDANSETRON 4 MG/2 ML VIAL IVP PRN ×3 (02:55→16:44)
[2016-08-29] MEDS: HYDROCODONE/APAP 5/325 TAB PO PRN ×4 (02:55→21:09)
[2016-08-29] MEDS: HYDROCHLOROTHIAZIDE 12.5 MG CAP PO SCH (08:05)
[2016-08-29] MEDS: VALSARTAN 160 MG TAB PO SCH (08:05)
[2016-08-29] MEDS: ACETAMINOPHEN/ASA/CAFFEINE 1 EACH TAB PO PRN (08:05)
[2016-08-29] MEDS: PANTOPRAZOLE SODIUM 40 MG TAB PO SCH (08:05)
[2016-08-29] MEDS: SENNOSIDES/DOCUSATE SODIUM TAB PO SCH ×2 (08:06→21:07)
[2016-08-29] MEDS: ENOXAPARIN 40 MG/0.4 ML SYR SC SCH (08:06)
--- NOTE | 2016-08-29 08:49 | SOAPPROG ---
SOAP Progress Note Assessment/Plan: Assessment: 71yo male s/p sigmoid colectomy for history of diverticulitis, laparotomy for peritonitis Feel little better than yesterday, passing small amounts of gas, ambulating, feels like things are trending the right way. Tolerating small amount of clears. PE Laying in bed Abdomen mildly distended, incision clean and dry JACK with scant serosag drainage , loud bowel sounds present Plan: continue trial of small amount of clears later if still passing gas, encouraged increase in PO intake 08/28/16 12:20 08/29/16 08:47 08/29/16 08:48 Objective: Vital Signs Temp Pulse Resp BP Pulse Ox 36.6 C 59 L 18 144/83 H 92 08/29/16 07:17 08/29/16 07:17 08/29/16 07:17 08/29/16 07:17 08/29/16 07:17 Microbiology 08/24/16 00:20 Gram Stain - Final Peritoneal Fluid - Eswab Laboratory Results 08/27/16 08:30 08/27/16 08:15 08/28/16 08/29/16 08/30/16 05:59 05:59 05:59 Intake Total 900 Output Total 1230 1007 275 Balance -330 -1007 -275 ICD10 Worksheet Patient Problems: Problems Problem Status Onset Abdominal pain Acute Diverticulitis Acute
[2016-08-29] MEDS: ERTAPENEM 1 GM in NS 100 ML IV SCH (09:58)
[2016-08-29] MEDS: D5W 1/2 NS W/ 20 KCl/L 1,000 ML IV SCH (19:30)
[2016-08-29] MEDS: ATORVASTATIN CALCIUM 20 MG TAB PO SCH (21:08)
[2016-08-29] MEDS: ALLOPURINOL 100 MG TAB PO SCH (21:09)
[2016-08-30] MEDS: HYDROCODONE/APAP 5/325 TAB PO PRN ×4 (01:40→21:16)
[2016-08-30] MEDS: ENOXAPARIN 40 MG/0.4 ML SYR SC SCH ×2 (08:23→12:13)
[2016-08-30] MEDS: ERTAPENEM 1 GM in NS 100 ML IV SCH (08:23)
[2016-08-30] MEDS: SENNOSIDES/DOCUSATE SODIUM TAB PO SCH ×2 (08:24→21:19)
[2016-08-30] MEDS: PANTOPRAZOLE SODIUM 40 MG TAB PO SCH (08:25)
[2016-08-30] MEDS: VALSARTAN 160 MG TAB PO SCH (08:25)
[2016-08-30] MEDS: HYDROCHLOROTHIAZIDE 12.5 MG CAP PO SCH (08:25)
[2016-08-30] MEDS: ACETAMINOPHEN/ASA/CAFFEINE 1 EACH TAB PO PRN (09:13)
--- NOTE | 2016-08-30 10:45 | SOAPPROG ---
SOAP Progress Note Assessment/Plan: Assessment/Plan: 71 Y M s/p resection of large sigmoid diverticulum. re- exploration for peritonitis. no leak or perforation found. Doing well. Using norco prn. Advance diet to light. [employer] Worker consult today. Dispo: possible home in next 1-2 days. S: Passing gas. No BM. No N/V. Ambulating often. [place] helping pain. O: alert, nad ctab rrr abd soft, appropriately tender, inc cdi, no erythema. +BS. 08/30/16 10:42 Objective: Vital Signs Temp Pulse Resp BP Pulse Ox 36.8 C 62 18 160/85 H 94 08/30/16 07:39 08/30/16 07:39 08/30/16 07:39 08/30/16 07:39 08/30/16 07:39 Microbiology 08/24/16 00:20 Gram Stain - Final Peritoneal Fluid - Eswab Laboratory Results 08/27/16 08:30 08/27/16 08:15 08/29/16 08/30/16 08/31/16 05:59 05:59 05:59 Intake Total 1075 Output Total 3057 4037 Balance -1007 -230 ICD10 Worksheet Patient Problems: Problems Problem Status Onset Abdominal pain Acute Diverticulitis Acute
[2016-08-30] MEDS: ALLOPURINOL 100 MG TAB PO SCH (21:17)
[2016-08-30] MEDS: ATORVASTATIN CALCIUM 20 MG TAB PO SCH (21:17)
[2016-08-31] MEDS: HYDROCODONE/APAP 5/325 TAB PO PRN ×3 (02:16→20:28)
[2016-08-31] MEDS: VALSARTAN 160 MG TAB PO SCH (08:35)
[2016-08-31] MEDS: PANTOPRAZOLE SODIUM 40 MG TAB PO SCH (08:35)
[2016-08-31] MEDS: HYDROCHLOROTHIAZIDE 12.5 MG CAP PO SCH (08:35)
[2016-08-31] MEDS: ERTAPENEM 1 GM in NS 100 ML IV SCH ×2 (08:36→09:21)
[2016-08-31] MEDS: SENNOSIDES/DOCUSATE SODIUM TAB PO SCH ×2 (08:36→20:25)
[2016-08-31] MEDS: ENOXAPARIN 40 MG/0.4 ML SYR SC SCH (09:22)
--- NOTE | 2016-08-31 09:35 | SOAPPROG ---
SOAP Progress Note Assessment/Plan: Assessment: 71yo male s/p sigmoid colectomy for history of diverticulitis, laparotomy for peritonitis Feel little better than yesterday, passing small amounts of watery stool, ambulating, feels like things are trending the right way. Tolerating small amount of regular diet, worried about going home and possibly coming back if issue develops. PE Sitting in chair Abdomen mildly distended, stapled incision clean and dry JACK with scant serosag drainage. Plan: remove JACK possibly home late today if doing well, will check back with patient around 1pm. 08/28/16 12:20 08/29/16 08:47 08/29/16 08:48 08/31/16 09:34 Objective: Vital Signs Temp Pulse Resp BP Pulse Ox 36.6 C 67 16 137/75 H 96 08/31/16 07:28 08/31/16 07:28 08/31/16 07:28 08/31/16 07:28 08/31/16 07:28 Microbiology 08/24/16 00:20 Gram Stain - Final Peritoneal Fluid - Eswab Laboratory Results 08/27/16 08:30 08/27/16 08:15 08/30/16 08/31/16 09/01/16 05:59 05:59 05:59 Intake Total 1075 1000 Output Total 1305 5 Balance -230 995 ICD10 Worksheet Patient Problems: Problems Problem Status Onset Abdominal pain Acute Diverticulitis Acute
[2016-08-31] MEDS ORDERED: levOFLOXACIN ORAL 25 MG/ML 100 ML BOTTLE PO SCH (13:15)
[2016-08-31] MEDS: VANCOMYCIN 125 MG/2.5 ML UDL PO SCH ×2 (16:30→20:29)
[2016-08-31] MEDS: ATORVASTATIN CALCIUM 20 MG TAB PO SCH (20:27)
[2016-08-31] MEDS: ALLOPURINOL 100 MG TAB PO SCH (20:28)
--- NOTE | 2016-08-31 20:29 | GCON ---
[f rep st] CONSULTATION INFECTIOUS DISEASE CONSULTATION DATE OF CONSULTATION: 08/31/2016 REFERRING PHYSICIAN: KATHARINE Pedro REASON FOR CONSULTATION: Clostridium difficile colitis. HISTORY OF PRESENT ILLNESS: The patient is a 71-year-old male with a past medical history of recurr ent diverticulitis who I am asked to see in consultation for Clostridium difficile colitis. The pat ient underwent laparoscopic partial sigmoid colectomy as well as adhesional lysis for internal herni a on 08/21/2016. Three days postoperatively, the patient developed peritonitis and underwent laparo john which showed cloudy fluid in the pelvis but no evidence of small bowel injury or anastomotic le ak or ischemic bowel. The patient was treated with ertapenem postoperatively which was transitioned to oral levofloxacin today. Yesterday, the patient developed new onset watery diarrhea with approx imately 4 episodes present. This was associated with some abdominal cramping. He had recurrent bird rrhea today for approximately 3 episodes without mucus or blood. Stool Clostridium difficile testin g was performed and was positive. Patient had prior surgical treatment of diverticulitis 15 years a go which he states was also complicated by Clostridium difficile colitis. He has not experienced si gnificant nausea or vomiting. He does have decreased oral intake. He does not have significant ass ociated abdominal pain. He does not describe fever or chills. Based on the above findings, I am no w asked to assist in his ongoing management. PAST MEDICAL HISTORY: Recurrent diverticulitis, Clostridium difficile colitis, hospitalization in [facility] for diverticulitis with contained microperforation, cough, hypertension, hyperlipidemia, obstru ctive sleep apnea, spinal stenosis, gout. PAST SURGICAL HISTORY: Prior partial colectomy for sigmoid diverticulitis. CURRENT MEDICATIONS: Levofloxacin 500 mg p.o. daily, Excedrin as needed for headache, [place] as need ed for pain, allopurinol 100 mg p.o. q.h.s., Lipitor 30 mg p.o. q.h.s., Lovenox 40 mg subcu daily, h ydrochlorothiazide 12.5 mg p.o. daily, Protonix 40 mg p.o. daily, Diovan 160 mg p.o. daily. ALLERGIES: Penicillin/amoxicillin associated with peeling erythematous rash over face (please amend the medications to also have at the end; recent treatment with ciprofloxacin and Flagyl during hosp italization for diverticulitis. SOCIAL HISTORY: Patient does not smoke. He drinks alcohol socially. No unusual travel. FAMILY HISTORY: Father with colon cancer. REVIEW OF SYSTEMS: Outside that noted in the HPI, the remainder of 10-system review was unremarkabl e. PHYSICAL EXAMINATION: VITAL SIGNS: Temperature 36.9, heart rate 78, respiratory rate 18, blood pre ssure 128/67, oxygen saturation 91% on room air. GENERAL: Patient is well nourished, well develope d, in no acute distress. He appears nontoxic. HEENT: There is no scleral icterus, conjunctival in jection or conjunctival petechiae. Oropharynx is clear without lesions. Dentition is in fair repai r. There is no nasal discharge. There is no tenderness over the frontal, maxillary or mastoid area . NECK: Supple without lymphadenopathy. There is no palpable thyromegaly. CHEST: Clear to auscu ltation bilaterally without adventitious sounds. The respiratory effort is normal. CARDIOVASCULAR: Regular rate and rhythm without murmurs, gallops, rubs. ABDOMEN: Soft, nontender, mildly distend ed. Surgical incision is well healed without erythema or drainage. No palpable organomegaly. Chris l sounds are hypoactive. MUSCULOSKELETAL: There is no cyanosis, clubbing, or edema. SKIN: No sti gmata of endocarditis. Warm and dry to touch. NEUROLOGIC: The patient is alert and interacts appr opriately with examiner. Cranial nerves 2-12 are grossly intact. Sensation is grossly intact. Mus laura tone and bulk are normal. LYMPHATICS: There are no cervical, supraclavicular or inguinal nodes palpable. LABORATORY DATA: White blood cell count 7.7, hematocrit 35.0, platelets 242, neutrophils 76%, serum creatinine is 0.9, AST 16, ALT 33, bilirubin 0.4, albumin 2.6, Clostridium difficile toxin is posit luc[place] by PCR, peritoneal cultures from 08/24/2016 showed rare gram-positive cocci with cultures growin g 1+ lactobacillus. IMPRESSION: 1. Clostridium difficile colitis: New onset diarrhea consistent with Clostridium difficile colitis with more remote consideration that this is simply colonization. Based on prior history, will proc eed with treatment as if Clostridium difficile is present. Anticipate a 10-day course of oral vanco mycin. 2. Peritonitis: Patient completed 1 week of antibiotic therapy post incision and drainage. Cultur e showed lactobacillus (patient did take probiotics) which has somewhat limited treatment options ba sed on penicillin allergy and Clostridium difficile as outlined above, as alternative therapy would be clindamycin. Ertapenem may have limited activity against lactobacillus. Given clinical improvem ent and status post incision and drainage, think can observe without further antibiotic therapy as t his would mitigate against worsening Clostridium difficile colitis. Will need to have continued cli nical followup over time to ensure stability. RECOMMENDATIONS: 1. Vancomycin 125 mg p.o. q.i.d. 2. Discontinue levofloxacin and observe off further antibiotic therapy. 3. Risk of recurrence with Clostridium difficile and household measures to decrease transmission we re discussed with patient. He was advised of educational materials on our website. Thank you for this consultation. /[id number]/MODL
[2016-09-01] MEDS: HYDROCODONE/APAP 5/325 TAB PO PRN ×2 (02:12→11:41)
[2016-09-01] MEDS: VANCOMYCIN 125 MG/2.5 ML UDL PO SCH ×2 (07:01→11:42)
[2016-09-01 07:19] VITALS: BP 116/70; PULSE 62; RESP 16; TEMP 97.7; O2SAT 94
[2016-09-01] MEDS: SENNOSIDES/DOCUSATE SODIUM TAB PO SCH (07:47)
[2016-09-01] MEDS: VALSARTAN 160 MG TAB PO SCH (09:14)
[2016-09-01] MEDS: HYDROCHLOROTHIAZIDE 12.5 MG CAP PO SCH (09:21)
[2016-09-01] MEDS: PANTOPRAZOLE SODIUM 40 MG TAB PO SCH (09:22)
[2016-09-01] MEDS: ENOXAPARIN 40 MG/0.4 ML SYR SC SCH (09:48)
--- NOTE | 2016-09-01 11:08 | SOAPPROG ---
SOAP Progress Note Assessment/Plan: Assessment/Plan: 71 Y M s/p resection of large sigmoid diverticulum. re- exploration for peritonitis. no leak or perforation found. cdif. Appreciate Dr. Schneider's input. Patient now has Rx PO Vanco for home. D/c to home today with outpatient f/u. Discussed limitations. S: Diarrhea stopped. No abdominal cramping. Using about 3 norco/day. Eating fine. Wants to go home. O: alert, nad ctab rrr abd soft, appropriately tender, inc cdi, no erythema. +BS. 09/01/16 11:06 Objective: Vital Signs Temp Pulse Resp BP Pulse Ox 36.5 C 62 16 116/70 94 09/01/16 07:17 09/01/16 07:17 09/01/16 07:17 09/01/16 09:21 09/01/16 07:17 Laboratory Results 08/27/16 08:30 08/27/16 08:15 08/31/16 09/01/16 09/02/16 05:59 05:59 05:59 Intake Total 1000 740 300 Output Total 5 Balance 995 740 300 ICD10 Worksheet Patient Problems: Problems Problem Status Onset C. difficile diarrhea Acute ~08/31/16 Abdominal pain Acute Diverticulitis Acute
--- NOTE | 2016-09-01 11:44 | GDS ---
[f rep st] DISCHARGE SUMMARY DISCHARGE DIAGNOSIS: 1. Diverticulitis with large outpouching of previous sigmoid anastomosis. 2. Peritonitis. 3. Clostridium difficile infection. PROCEDURES: 1. Laparoscopic partial sigmoid colectomy with adhesiolysis for internal hernia with small bowel, e nterorrhaphy and colonoscopy. 2. Laparotomy with drainage of peritoneal fluid. CONSULTATION: Dr. Ankush Schneider, [facility] Infect[facility]. HOSPITAL COURSE: The patient is a 71-year-old male, who had a previous sigmoid colectomy for divert iculitis. He had a large outpouching/diverticulum at his prior anastomosis. He underwent a laparos copic resection of a sigmoid diverticulum. The procedure was uncomplicated and he tolerated it well . He did have many adhesions in an area of an internal hernia with small bowel in the right lower q uadrant which required a single stitch in the serosa of the small bowel. Intraoperative colonoscopy showed no other diverticula and a patent open channel after his resection. The patient did well on postoperative day 1. His abdomen was soft and he was passing gas, so we adv anced his diet. Overnight he developed increased abdominal pain with distention. Eventually he dev eloped a fever and required return to the operating room for exploration. He was found to have dilia tonitis with some cloudy fluid but no small bowel injury or leak, no compromised bowel, and no obvio us inciting reason for the infection other than his previous diverticulitis. This procedure was unc omplicated and he tolerated it well. Eventually his bowel function returned and the diet was advanc ed. He was kept on IV antibiotics, initially with ertapenem and then Levaquin. He developed diarrh ea and a C diff test was positive. He was seen by Ankush Schneider of Infectious Disease and put on oral v ancomycin. At this point, he was doing well with a soft abdomen, minimal pain and no diarrhea and was eager to go home. DISCHARGE INSTRUCTIONS: Patient was discharged to home in stable condition with plans for outpatien t followup with both Dr. Hsu and Dr. Schneider. He was given prescriptions for oral vancomycin, as wel l as Oneco. All limitations were discussed prior to him going home. /[id number]/MODL
== END 2016-09-01 12:31 | disposition home or self-care (01) | DRG 330 ==
LOC: F3E 07:45
PROVIDERS: ADMIT Surgery; ATTEND Surgery
PROC: 0DN84ZZ Release Small Intestine, Percutaneous Endoscopic Approach (ICD-10-PCS; principal; 2016-08-21 09:30)
PROC: 0DJD8ZZ Inspection of Lower Intestinal Tract, Via Natural or Artificial Opening Endoscopic (ICD-10-PCS; principal; 2016-08-21 09:30)
PROC: 0DTN4ZZ Resection of Sigmoid Colon, Percutaneous Endoscopic Approach (ICD-10-PCS; principal; 2016-08-21 09:30)
PROC: 0W9G00Z Drainage of Peritoneal Cavity with Drainage Device, Open Approach (ICD-10-PCS; 2016-08-24)
PROC: 02HV33Z Insertion of Infusion Device into Superior Vena Cava, Percutaneous Approach (ICD-10-PCS; 2016-08-27)
DX: K57.20 Diverticulitis of large intestine with perforation and abscess without bleeding (principal); A04.7 Enterocolitis due to Clostridium difficile; K46.9 Unspecified abdominal hernia without obstruction or gangrene; I10 Essential (primary) hypertension; M10.9 Gout, unspecified; Z53.31 Laparoscopic surgical procedure converted to open procedure; G47.33 Obstructive sleep apnea (adult) (pediatric); Z88.0 Allergy status to penicillin
CPT/HCPCS: 97116-GP; 97162-GP; C1751; G8978-GP-CI; G8978-GP-CK; G8979-GP-CI; G8980-GP-CI; J1100; J1170; J1335; J1650; J1885; J1956; J2250; J2370; J2405; J2704; J3010